=== PATIENT | female | born 1950 | race Two or more races ===

== ENCOUNTER 2016-08-13 08:44 | Emergency (ER) | payer MEDICARE, MEDICAID ==
[~2016-08-13] VITALS: Ht 165.1 cm; Wt 72.6 kg
[2016-08-13 09:03] VITALS: BP 170/98
[2016-08-13] MEDS ORDERED: CLINDAMYCIN HCL 150 MG CAPSULE PO ONE (09:15)
[2016-08-13] MEDS ORDERED: HYDROcodone/APAP 5/325MG 1 TAB TABLET PO ONE (09:15)
[2016-08-13] MEDS ORDERED: HYDR-2678 PO (09:18)
[2016-08-13] MEDS ORDERED: CLIN300C3 PO (09:18)
--- NOTE | 2016-08-13 09:27 | PHYS DOC ---
Past History Past Medical History: Anxiety, Asthma, High Cholesterol, Hypertension, Hypothyroid, Other Past Surgical History: Cholecystectomy, Hysterectomy, Other Alcohol Use: None Drug Use: None Adult General Chief Complaint Chief Complaint: DENTAL PROBLEM HPI HPI This patient is a pleasant 65-year-old female who is visiting her daughter here in [facility] she has a history of dental caries and prior fillings and dental crowns when eating a piece of pork A few days ago when of the crowns cracked exposing the nerve root in her lower molar. Tooth #31 as been exhibiting localized pain with hot and cold food with chewing causing pain radiating to the lower jaw and earlobe. She denies any fevers, chills, change in voice, neck stiffness or fullness. She denies any direct trauma. She did see a pediatric dentist who was a friend of the family who told her that she needed to come to the emergency department for an evaluation for possible localized infection. She denies any headache. He states states the pain is better with oral hydrocodone but she has difficulty staying awake without medication. Review of Systems Review of Systems Constitutional: Denies fever or chills [] Eyes: Denies change in visual acuity, redness, or eye pain [] HENT: Denies nasal congestion or sore throat [] Respiratory: Denies cough or shortness of breath [] Cardiovascular: No additional information not addressed in HPI [] GI: Denies abdominal pain, nausea, vomiting, bloody stools or diarrhea [] : Denies dysuria or hematuria [] Musculoskeletal: Does have chronic back pain and peripheral neuropathy not related to this particular condition. Integument: Denies rash or skin lesions [] Neurologic: Denies headache, focal weakness or sensory changes [] Endocrine: Denies polyuria or polydipsia [] Current Medications Current Medications Current Medications Medications (Trade) Dose Ordered Sig/Kayley Start Time Stop Time Status Last Admin Dose Admin Acetaminophen/ Hydrocodone Bitart (Lortab 5/325) 1 tab 1X ONCE 08/13/16 09:15 08/13/16 09:16 UNV 08/13/16 09:15 1 TAB Clindamycin HCl (Cleocin) 300 mg 1X ONCE 08/13/16 09:15 08/13/16 09:16 UNV 08/13/16 09:15 300 MG Allergies Allergies Allergies Coded Allergies Type Severity Reaction Last Updated Verified Penicillins Allergy Unknown 08/13/16 Yes Physical Exam Physical Exam Constitutional: Well developed, well nourished, no acute distress, non-toxic appearance. [] HENT: Normocephalic, atraumatic, bilateral external ears normal, oropharynx moist, no patient demonstrates multiple dental caries with fillings and caps. Specifically tooth #31 has a partially fractured crown with exposed filling noted. Patient's got tenderness to palpation over the tooth itself to vibration there is minimal soft tissue swelling along the gingival line. Patient exhibits no joints or discharge from the wound. There is no concomitant cellulitis in the lingual or buccal mucosa. The course of surfaces of the tooth are also eroded secondary to dental caries. There is no reactive lymphadenopathy no soft tissue swelling Eyes: PERRLA, EOMI, conjunctiva normal, no discharge. [] Neck: Normal range of motion, no tenderness, supple, no stridor. [] Cardiovascular:Heart rate regular rhythm, no murmur [] Lungs & Thorax: Bilateral breath sounds clear to auscultation [] Skin: Warm, dry, no erythema, no rash. [] Neurologic: Alert and oriented X 3, This patient has normal speech without issue. Psychologic: Affect normal, judgement normal, mood normal. [] Current Patient Data Vital Signs Vital Signs Date Time Temp Pulse Resp B/P (MAP) Pulse Ox O2 Delivery O2 Flow Rate FiO2 08/13/16 09:15 18 08/13/16 09:03 98.4 65 95 Room Air EKG EKG [] Radiology/Procedures Radiology/Procedures [] Course & Med Decision Making Course & Med Decision Making Pertinent Labs and Imaging studies reviewed. (See chart for details) She with multiple medical problems unrelated to her dental caries today which is likely socially with a fractured dental crown. There is no evidence of soft tissue or apical abscess at this time. There is some gingival inflammation but no evidence of gingival abscess. Patient will be given a course of Cleocin as well as Lortab for her symptoms. They have been given also a handout local dentist in the area that will see her and definitively treat her symptoms with root canal. Patient given precautions asked to return for any localized swelling increasing pain or fever greater than 12.2 despite treatment or she can follow-up with her dentist. We can offer her dental blocks in the future as well to help with her symptomatology. Impression: Dental caries Disposition: Discharge to see PCP and referral to dentist as soon as can be arranged. [] Dragon Disclaimer Dragon Disclaimer This chart was dictated in whole or in part using Voice Recognition software in a busy, high-work load, and often noisy Emergency Department environment. It may contain unintended and wholly unrecognized errors or omissions. Departure Departure: Impression: Primary Impression: Dental caries Disposition: HOME, SELF-CARE Condition: GOOD Patient Instructions: Dental Caries Additional Instructions: Please follow-up with a local dentist as soon she can arrange. Please for any new or increasing symptoms, swollen jaw, fever greater than 102.2, change in voice, inability to this to swallow or open mouth. This return for any questions or concerns that you might have Scripts Hydrocodone/Acetaminophen (Lortab 5-325 mg Tablet) 1 Each Tablet 1 TAB PO PRN Q6HRS Y for PAIN for 7 Days, TAB 0 Refills Prov: ARIEL POPE MD 08/13/16 Clindamycin Hcl (CLEOCIN HCL) 300 Mg Capsule 1 CAP PO TID, #30 CAP Prov: ARIEL POPE MD 08/13/16 ARIEL POPE MD August 13, 2016 09:27
== END 2016-08-13 09:23 | disposition home or self-care (01) ==
LOC: ER 08:44
DX: K02.9 Dental caries, unspecified (principal); G89.29 Other chronic pain; J45.909 Unspecified asthma, uncomplicated; E78.00 Pure hypercholesterolemia, unspecified; E03.9 Hypothyroidism, unspecified; I10 Essential (primary) hypertension; Z88.0 Allergy status to penicillin
CPT/HCPCS: 99283